=== PATIENT | female | born 2005 | race Two or more races ===

== ENCOUNTER 2025-10-24 05:37 | Emergency (ER) | payer SELFPAY ==
[~2025-10-24] VITALS: Ht 165.1 cm; Wt 62.7 kg
[2025-10-24 05:48] VITALS: TEMP 98.1
[2025-10-24] MEDS: SODIUM CHLORIDE 0.9% 1,000 ML IV ONE (06:21)
[2025-10-24] MEDS: ONDANSETRON HCL 4 MG/2 ML VIAL IVP ONE (06:21)
[2025-10-24] MEDS: MORPHINE SULFATE 4 MG/ML SYRINGE IVP ONE (06:21)
[2025-10-24 06:22] LABS: PLATELET COUNT (AUTO) 235 K/uL (150-450); RED BLOOD CELL COUNT(AUTO) 4.98 MIL/uL (4.00-5.20); RED CELL DISTRIBUTION WIDTH 13.2 % (11.5-14.5); WHITE BLOOD COUNT (AUTO) 13.6 K/uL (4.5-11.0)
[2025-10-24 06:28] LABS: CALCIUM, TOTAL 8.8 mg/dL (8.8-10.5); CREATININE 0.59 mg/dL (0.60-1.30); GLOMERULAR FILTR. RATE CALC > 60 mL/min (>60); GLUCOSE,RANDOM 91 mg/dL (70-110); SODIUM SERUM 138 mmol/L (136-145); UREA NITROGEN, BLOOD 6 mg/dL (7-18)
[2025-10-24 06:35] LABS: ASPARTATE AMINOTRANSFERASE 18.0 U/L (15-37); TOTAL PROTEIN, SERUM 6.8 g/dL (6.4-8.2)
[2025-10-24] MEDS: KETOROLAC TROMETHAMINE 30 MG/ML VIAL IVP ONE (07:07)
[2025-10-24 09:20] VITALS: BP 125/72; PULSE 64; RESP 18; O2SAT 98
[2025-10-24] MEDS ORDERED: PREN-18 PO (09:20)
[2025-10-24] MEDS ORDERED: ACET-66 PO (09:25)
[2025-10-24] MEDS ORDERED: OMEP-148 PO (09:25)
[2025-10-24] MEDS: PB/HYOSCY/ATR/SCOP/LIDO/MAALOX 55 ML BOTTLE PO ONE (09:37)
== END 2025-10-24 10:05 | disposition home or self-care (01) ==
LOC: EMS 05:37
DX: O26.893 Other specified pregnancy related conditions, third trimester (principal); O26.613 Liver and biliary tract disorders in pregnancy, third trimester; R10.20 Pelvic and perineal pain unspecified side; Z91.018 Allergy to other foods; Z90.721 Acquired absence of ovaries, unilateral; Z3A.30 30 weeks gestation of pregnancy
CPT/HCPCS: 99285; 96374; 76705; 76801; 96375; 96361; 80048; 80076; 83690; 84702; 84703; 85025; 36415; J1885; J1171; J2270; J2405; J7030